=== PATIENT | female | born 1995 | race Caucasian/White ===

== ENCOUNTER 2017-12-23 23:37 | Inpatient (IN) ==
[2017-12-23] MEDS ORDERED: Citric Acid/Sodium Citrate Liq 30 ML UDC PO SCH (23:45)
[2017-12-23] MEDS ORDERED: Naloxone Inj 0.4 MG/ML Vial IV.PUSH PRN (23:54)
[2017-12-23] MEDS ORDERED: Sodium Chlor 0.9% Inj 500 ML IV.SIG PRN (23:54)
[2017-12-23] MEDS ORDERED: Sod Chloride 0.9% Inj 1,000 ML IV.CONT PRN (23:54)
[2017-12-23] MEDS ORDERED: ceFAZolin Inj 2,000 MG in Sodium Chlor 0.9% Inj 80 ML IV.SIG ONE (23:54)
[2017-12-23] MEDS ORDERED: Oxytocin 30 Units/500ml Premix 30 UNITS/500 ML BAG IV.SIG ONE (23:54)
[2017-12-23] MEDS ORDERED: fentaNYL Citrate Inj 100 MCG/2 ML Ampul IV.PUSH PRN (23:54)
--- NOTE | 2017-12-24 00:07 | P.HPOB ---
History of Present Illness Primary Care Physician: [facility] Chief Complaint: Pain History of Present Illness: 22-year-old at 16 weeks presents complaining of severe pain. Patient seen at Dr. Shant Moreau's office on 12/23/17-note ultrasound report which was pulled noted to have heart tones on 913 however repeat ultrasound on 1016 no heart tones edema fetus is [address] Shant Moreau's office noted to be dilated and scheduled at [facility] for treatment of incomplete AB. Patient presents today states the pain is unbearable. Weeks Gestation:: 16 Para: 2 : 3 Review of Systems All other systems reviewed negative except as stated in HPI PMFSH - History History Provided By: Patient - Surgical History Surgical History: Surgical History (Last Reviewed 11/22/17 @ 20:37 by DAVID Hubbard) H/O adenoidectomy Hx of tonsillectomy - Tobacco History Second Hand Smoke Exposure: No Smoking Status: Never smoker - Alcohol History How Often Do You Have a Drink Containing Alcohol: Never - Substance Use History Substance History: No History of Abuse Medications and Allergies Allergies Allergy/AdvReac Type Severity Reaction Status Date / Time strawberry AdvReac Intermediate rash Unverified 10/21/16 20:57 Home Medications Medication Instructions Recorded Confirmed Type No Known Home Medications 11/19/17 11/19/17 History Exam - Constitutional moderate distress, severe distress, average body habitus - Routine HEENT Exam Head: Present: normocephalic ENT: Present: mucous membranes moist - Routine Neck Exam Present: supple - Routine Respiratory Exam Present: CTA bilaterally - Routine Cardiovascular Exam Present: RRR - Routine Exam Comments: Vaginal exam 1 cm dilated 50% effaced sterile speculum exam membranes with hair noted - Routine Skin Exam Present: intact - Routine Neurological Exam Present: alert, oriented X3 Caprini VTE Risk Assessment Caprini VTE Risk Assessment: No/Low Risk (score <= 1) Caprini Risk Assessment Model: Point Value = 1 Point Value = 2 Point Value = 3 Point Value = 5 Age 41-60 Minor surgery BMI > 25 kg/m2 Swollen legs Varicose veins or History of unexplained or recurrent spontaneous Oral contraceptives or hormone replacement Sepsis (< 1 month) Serious lung disease, including pneumonia (< 1 month) Abnormal pulmonary function Acute myocardial infarction Congestive heart failure (< 1 month) History of inflammatory bowel disease Medical patient at bed rest Age 61-74 Arthroscopic surgery Major open surgery (> 45 min) Laparoscopic surgery (> 45 min) Malignancy Confined to bed (> 72 hours) Immobilizing plaster cast Central venous access Age >= 75 History of VTE Family history of VTE Factor V Leiden Prothrombin [id number] Lupus anticoagulant Anticardiolipin antibodies Elevated serum homocysteine Heparin-induced thrombocytopenia Other congenital or acquired thrombophilia Stroke (< 1 month) Elective arthroplasty Hip, pelvis, or leg fracture Acute spinal cord injury (< 1 month) Prophylaxis Regimen: Total Risk Factor Score Risk Level Prophylaxis Regimen 0-1 Low Early ambulation 2 Moderate Order ONE of the following: *Sequential Compression Device (SCD) *Heparin 5000 units SQ BID 3-4 Higher Order ONE of the following medications: *Heparin 5000 units SQ TID *Enoxaparin/Lovenox 40 mg SQ daily (WT < 150 kg, CrCl > 30 mL/min) *Enoxaparin/Lovenox 30 mg SQ daily (WT < 150 kg, CrCl > 10-29 mL/min) *Enoxaparin/Lovenox 30 mg SQ BID (WT < 150 kg, CrCl > 30 mL/min) AND/OR *Sequential Compression Device (SCD) 5 or more Highest Order ONE of the following medications: *Heparin 5000 units SQ TID (Preferred with Epidurals) *Enoxaparin/Lovenox 40 mg SQ daily (WT < 150 kg, CrCl > 30 mL/min) *Enoxaparin/Lovenox 30 mg SQ daily (WT < 150 kg, CrCl > 10-29 mL/min) *Enoxaparin/Lovenox 30 mg SQ BID (WT < 150 kg, CrCl > 30 mL/min) AND *Sequential Compression Device (SCD) Assessment and Plan - Diagnosis (1) demise before 20 weeks with retention of fetus Code(s): O02.1 - Missed Status: Acute (2) 16 weeks gestation of Code(s): Z3A.16 - 16 weeks gestation of Status: Acute - Plan Admit/all labs/PT PTT/Cytotec induction-patient and her mom counseled and agreed to admission and manage
[2017-12-24] MEDS: fentaNYL Citrate Inj 100 MCG/2 ML Ampul IV.PUSH PRN ×2 (01:11→06:13)
[2017-12-24] MEDS: miSOPROStol 200 MCG Tablet VAGINAL SCH ×3 (01:15→10:00)
[2017-12-24 01:24] LABS: Baso % (Auto) 0.2 % (0.0-2.0); Eos # (Auto) 0.2 th/mm3 (0.0-0.4); Eos % (Auto) 1.9 % (0.0-4.0); Hematocrit 34.6 % (35.0-46.0); Hemoglobin 10.8 gm/dL (11.6-15.3); Lymph # (Auto) 2.1 th/mm3 (1.0-4.8); Lymph % (Auto) 22.1 % (9.0-44.0); Mean Corpuscular HGB Conc 31.3 % (32.0-36.0); Mean Corpuscular Hemoglobin 21.4 pg (27.0-34.0); Mean Corpuscular Volume 68.5 fL (80.0-100.0); Mean Platelet Volume 8.8 fL (7.0-11.0); Mono # (Auto) 0.6 th/mm3 (0.0-0.9); Mono % (Auto) 6.6 % (0.0-8.0); Neut # (Auto) 6.5 th/mm3 (1.8-7.7); Neut % (Auto) 69.2 % (16.0-70.0); Platelet Count 261 th/mm3 (150-450); Red Blood Count 5.05 mil/mm3 (4.00-5.30); Red Cell Distribution Width 17.9 % (11.6-17.2); White Blood Count 9.4 th/mm3 (4.0-11.0)
--- NOTE | 2017-12-24 01:46 | P.OBGPN ---
Nya notified M.D. of delivery - Pt seen comfortable: nonviable fetus delivered Apgars 0/0/0. Placenta in situ- Cytotec placed
[2017-12-24 03:45] VITALS: RESP 16
[2017-12-24 04:24] LABS: Activated Partial Thrombo Time 26.8 sec (24.3-30.1); INR 1.1 Ratio; Prothrombin Time 11.5 sec (9.8-11.6)
[2017-12-24 08:07] VITALS: TEMP 98.1
[2017-12-24 10:44] VITALS: BP 101/52; PULSE 64
--- NOTE | 2017-12-24 12:46 | US ---
EXAM DATE: 12/24/2017 10:32 AM EDT AGE/SEX: 22 years / Female INDICATIONS: Spontaneous , assess for retained products of conception. Pelvic pain and bleed ing. CLINICAL DATA: This is the patient's initial encounter. Patient reports that signs and symptoms have been present for 1 day and indicates a pain score of 0/10. MEDICAL/SURGICAL HISTORY: . Spontaneous . Tonsillectomy. Adenoidectomy. [place] [facility] [place] 11/19/2017. . MEASUREMENTS: Uterus:__11.7 x 6.6 x 4.3 cm Endometrial Stripe:__10 mm Right Ovary:__ 3.3 x 2.7 x 2.4 cm Left Ovary:__ . Not visualized. FINDINGS: The left ovary is not visualized. The right ovary is unremarkable. There is no free fluid seen. The u terus is normal in size and contour. Blood flow is documented to the right ovary. The endometrium is diffusely thickened and inhomogeneous in appearance measuring up to 2 cm. There is no definite legal summer intern al blood flow on color Doppler imaging. CONCLUSION: 1. Thickened heterogeneous appearance of the endometrial cavity in this patient with history of abor tion and bleeding. There is no increased vascularity on color Doppler imaging at this level however t his can be seen with retained products of conception. The differential diagnosis includes blood clot within the endometrial cavity. Electronically signed by: Elio Victoria MD 12/24/2017 12:45 PM EDT
== END 2017-12-24 11:18 | disposition home or self-care (01) ==
LOC: HOBED 23:37 → H2E 12-24 00:19
PROVIDERS: ADMIT Obstetrics & Gynecology; ATTEND Obstetrics & Gynecology